=== PATIENT | female | born 2000 | race African-American/Black ===

== ENCOUNTER 2020-08-27 17:44 | Emergency (ER) | payer SELFPAY ==
[~2020-08-27] VITALS: Ht 162.6 cm; Wt 69.0 kg
[2020-08-27 19:45] LABS: HEMATOCRIT 30.8 % (36.0-48.0); MEAN CORPUSCULAR HEMOGLOBIN 26.7 pg (28.0-32.0); MEAN CORPUSCULAR VOLUME 82.2 fL (81.0-99.0); PLATELET 216 x1000/uL (130-400); RED BLOOD CELL COUNT 3.75 mill/uL (4.2-5.4); RED CELL DISTRIBUTION WIDTH 14.2 % (11.6-14.6)
[2020-08-27 19:55] LABS: CHLORIDE 108 mEq/L (98-107)
[2020-08-27 20:08] LABS: CLARITY URINE CLEAR (CLEAR); COLOR URINE YELLOW (YELLOW); KETONES URINE NEGATIVE (NEGATIVE); LEUKOCYTE ESTERASE URINE NEGATIVE (NEGATIVE); NITRITE URINE NEGATIVE (NEGATIVE); OCCULT BLOOD URINE NEGATIVE (NEGATIVE); PROTEIN URINE NEGATIVE (NEGATIVE); SPECIFIC GRAVITY URINE 1.032 (1.005-1.030)
[2020-08-27 20:46] LABS: B-HCG QUANTITATIVE 81097 mIU/mL (<3)
[2020-08-27] MEDS ORDERED: DOXY25TA49 PO (21:27)
[2020-08-27] MEDS ORDERED: PYRI25TA4 PO (21:27)
[2020-08-27] MEDS ORDERED: HYDR118L15 TP (21:27)
[2020-08-27] MEDS ORDERED: LORA10TA7 MT (21:27)
[2020-08-27 21:45] VITALS: BP 104/50
== END 2020-08-27 22:05 | disposition home or self-care (01) ==
LOC: ER 17:44
DX: R10.9 Unspecified abdominal pain (principal); R21 Rash and other nonspecific skin eruption; L29.9 Pruritus, unspecified; R11.0 Nausea; Z33.1 Pregnant state, incidental
CPT/HCPCS: 36415; 80053; 81003; 84702; 85027; 93005; 99284

== ENCOUNTER 2020-09-06 16:16 | Emergency (ER) | payer MEDICAID ==
[~2020-09-06] VITALS: Ht 162.6 cm; Wt 70.0 kg
[~2020-09-06 16:16] MED LIST: DOXY25TA49 PO; HYDR118L15 TP; LORA10TA7 MT; PYRI25TA4 PO
[2020-09-06 17:12] LABS: BASOPHILS % 0.1 % (0.0-2.0); EOSINOPHILS % 0.7 % (0.0-5.0); HEMATOCRIT. 33.1 % (36.0-48.0); HEMOGLOBIN. 10.9 g/dL (12.0-16.0); LYMPHOCYTES % 17.2 % (20.0-50.0); MEAN CORPUSCULAR HEMOGLOBIN 26.9 pg (28.0-32.0); MEAN CORPUSCULAR VOLUME 81.9 fL (81.0-99.0); MEAN PLATELET VOLUME 7.8 fl (7.4-10.4); MONOCYTES % 6.2 % (2.0-8.0); NEUTROPHILS % 75.8 % (40.0-76.0); PLATELET 275 x1000/uL (130-400); RED BLOOD CELL COUNT 4.04 mill/uL (4.2-5.4)
[2020-09-06] MEDS ORDERED: ACETAMINOPHEN 325MG TABLET PO STA (17:13)
[2020-09-06 17:18] LABS: CLARITY URINE CLEAR (CLEAR); COLOR URINE YELLOW (YELLOW); KETONES URINE NEGATIVE (NEGATIVE); LEUKOCYTE ESTERASE URINE 2+ (NEGATIVE); NITRITE URINE NEGATIVE (NEGATIVE); OCCULT BLOOD URINE NEGATIVE (NEGATIVE); PH URINE 6.5 (4.5-8.0); PROTEIN URINE NEGATIVE (NEGATIVE); SPECIFIC GRAVITY URINE 1.029 (1.005-1.030); UROBILINOGEN URINE 0.2 E.U./dL (0.2-1.0)
[2020-09-06 17:19] LABS: CHLORIDE 110 mEq/L (98-107)
[2020-09-06 17:20] LABS: HCG SCREEN POSITIVE; INR 1.1; PROTHROMBIN TIME 11.3 sec (9.6-11.0)
[2020-09-06 17:23] LABS: ETHANOL BLOOD < 10 mg/dL
[2020-09-06 17:27] LABS: *AMPHETAMINES SCREEN URINE NEGATIVE (NEGATIVE); *BARBITURATES SCREEN URINE NEGATIVE (NEGATIVE); *BENZODIAZEPINES SCREEN URINE NEGATIVE (NEGATIVE); *COCAINE SCREEN URINE NEGATIVE (NEGATIVE)
[2020-09-06 17:28] LABS: CANNABINOID URINE SCREEN NEGATIVE (NEGATIVE); METHADONE URINE SCREEN NEGATIVE (NEGATIVE); OPIATES URINE SCREEN NEGATIVE (NEGATIVE); PHENCYCLIDINE URINE SCREEN NEGATIVE (NEGATIVE)
[2020-09-06 17:41] LABS: D-DIMER 0.36 mg/L FEU (<0.50)
[2020-09-06] MEDS ORDERED: NITR-87 MT (21:12)
[2020-09-06 21:36] VITALS: BP 101/64
== END 2020-09-06 21:37 | disposition home or self-care (01) ==
LOC: ER 16:16
DX: R07.89 Other chest pain (principal); R10.11 Right upper quadrant pain; N39.0 Urinary tract infection, site not specified; N83.202 Unspecified ovarian cyst, left side
CPT/HCPCS: 36415; 76705; 76801; 76817; 80053; 80305; 80320; 81003; 81025; 83690; 84484; 84702; 84703; 85025; 85379; 85610; 85730; 93005; 99285; Z7610; G0480